=== PATIENT | male | born 1950 | race Caucasian/White ===

== ENCOUNTER 2018-02-21 22:44 | Observation (INO) | payer MEDICARE ==
[2018-02-21 22:59] VITALS: BP 213/96; PULSE 51; RESP 20; O2SAT 98
--- NOTE | 2018-02-21 23:02 | PD ---
HPI Chief Complaint: Chest Pain Time Seen by Provider: 22:46 Travel History International Travel<30 days: No Contact w/Intl Traveler<30days: No Traveled to known affect area: No History of Present Illness HPI 68-year-old male complains of chest pain. Patient states that he started having substernal chest pressure about an hour prior to arrival. Patient states that the chest pressure lasted a few minutes and resolved completely. Patient denies any chest pain now. Patient states that he had nausea and palpitation with a chest pain. Patient denies any diaphoresis. Patient denies any chest pain radiation. Patient has history of CAD status post stent placement in the past. Patient has history hypertension, diabetes, hyperlipidemia. Patient is a non-smoker. Patient has family history of heart disease. Patient on aspirin 81 mg twice a day. FOR[facility]LY [facility] Social History Tobacco Use: No Allergies-Medications (Allergen,Severity, Reaction): Coded Allergies: No Known Allergies (Unverified , 02/21/18) Reported Meds & Prescriptions Reported Meds & Active Scripts Active Reported Nexium (Esomeprazole DR) 40 Mg Capdr 40 Mg PO DAILY Tamsulosin (Tamsulosin HCl) 0.4 Mg Cap 0.4 Mg HS Levothyroxine (Levothyroxine Sodium) 50 Mcg Tab 50 Mcg PO DAILY Atorvastatin (Atorvastatin Calcium) 20 Mg Tab 20 Mg PO HS Lisinopril 5 Mg Tab 5 Mg PO DAILY Aspirin 81 (Aspirin) 81 Mg Tabdr 81 Mg PO DAILY Metoprolol Tartrate 25 Mg Tab 12.5 Mg PO BID Metformin (Metformin HCl) 850 Mg Tab 850 Mg PO BIDPC Review of Systems General / Constitutional: No: Fever Eyes: No: Visual changes HENT: No: Headaches Cardiovascular: Positive: Chest Pain or Discomfort Respiratory: No: Shortness of Breath Gastrointestinal: Positive: Nausea, No: Abdominal Pain Genitourinary: No: Dysuria Musculoskeletal: No: Pain Skin: No Rash Neurologic: No: Weakness Psychiatric: No: Depression Endocrine: No: Polydipsia Hematologic/Lymphatic: No: Easy Bruising Physical Exam Narrative GENERAL: Well-nourished, well-developed patient. SKIN: Focused skin assessment warm/dry. HEAD: Normocephalic. EYES: No scleral icterus. No injection or drainage. NECK: Supple, trachea midline. No JVD or lymphadenopathy. CARDIOVASCULAR: Regular rate and rhythm without murmurs, gallops, or rubs. RESPIRATORY: Breath sounds equal bilaterally. No accessory muscle use. GASTROINTESTINAL: Abdomen soft, non-tender, nondistended. MUSCULOSKELETAL: No cyanosis, or edema. BACK: Nontender without obvious deformity. No CVA tenderness. Neurologic exam normal. Data Data Last Documented VS Vital Signs Date Time Temp Pulse Resp B/P (MAP) Pulse Ox O2 Delivery O2 Flow Rate FiO2 02/21/18 23:06 58 20 02/21/18 22:59 213/96 (135) 98 Orders Orders Electrocardiogram (02/21/18 22:55) Complete Blood Count With Diff (02/21/18 22:55) Comprehensive Metabolic Panel (02/21/18 22:55) Creatine Kinase (Cpk) (02/21/18 22:55) Troponin I (02/21/18 22:55) Prothrombin Time / Inr (Pt) (02/21/18 22:55) Act Partial Throm Time (Ptt) (02/21/18 22:55) Lipase (02/21/18 22:55) Chest, Single Ap (02/21/18 22:55) Iv Access Insert/Monitor (02/21/18 22:55) Ecg Monitoring (02/21/18 22:55) Oximetry (02/21/18 22:55) Admit Order (Ed Use Only) (02/22/18 00:17) Activity Bed Rest With Brp (02/22/18 00:18) Vital Signs (Adult) Q4H (02/22/18 00:18) Cardiac Rhythm .As Directed (02/22/18 00:18) Notify Dr: Other .PRN (02/22/18 00:18) Notify Parameters (02/22/18 00:18) Resp Oxygen Nasal Cannula (02/22/18 ) Diet Npo (02/22/18 Breakfast) Ckmb (Isoenzyme) Profile (02/22/18 01:50) Ckmb (Isoenzyme) Profile (02/22/18 04:50) Troponin I (02/22/18 01:50) Troponin I (02/22/18 04:50) Electrocardiogram (02/22/18 01:50) Electrocardiogram (02/22/18 04:50) ^ Obtain (02/22/18 00:18) Sodium Chloride 0.9% Flush (Ns Flush) (02/22/18 00:30) Sodium Chloride 0.9% Flush (Ns Flush) (02/22/18 09:00) Acetaminophen (Tylenol) (02/22/18 00:30) Ondansetron Inj (Zofran Inj) (02/22/18 00:30) Nutrition Coordinator / Telemetry KODAK.Q8H (02/22/18 00:18) Labs Laboratory Tests Test 02/21/18 22:50 White Blood Count 7.5 TH/MM3 Red Blood Count 4.34 MIL/MM3 Hemoglobin 13.6 GM/DL Hematocrit 40.9 % Mean Corpuscular Volume 94.1 FL Mean Corpuscular Hemoglobin 31.4 PG Mean Corpuscular Hemoglobin Concent 33.4 % Red Cell Distribution Width 12.5 % Platelet Count 177 TH/MM3 Mean Platelet Volume 9.5 FL Neutrophils (%) (Auto) 53.2 % Lymphocytes (%) (Auto) 30.6 % Monocytes (%) (Auto) 9.8 % Eosinophils (%) (Auto) 5.7 % Basophils (%) (Auto) 0.7 % Neutrophils # (Auto) 4.0 TH/MM3 Lymphocytes # (Auto) 2.3 TH/MM3 Monocytes # (Auto) 0.7 TH/MM3 Eosinophils # (Auto) 0.4 TH/MM3 Basophils # (Auto) 0.1 TH/MM3 CBC Comment DIFF FINAL Differential Comment Prothrombin Time 10.7 SEC Prothromb Time International Ratio 1.1 RATIO Activated Partial Thromboplast Time 26.1 SEC Blood Urea Nitrogen 22 MG/DL Creatinine 1.20 MG/DL Random Glucose 140 MG/DL Total Protein 7.2 GM/DL Albumin 3.8 GM/DL Calcium Level 8.8 MG/DL Alkaline Phosphatase 61 U/L Aspartate Amino Transf (AST/SGOT) 14 U/L Alanine Aminotransferase (ALT/SGPT) 23 U/L Total Bilirubin 0.4 MG/DL Sodium Level 139 MEQ/L Potassium Level 3.7 MEQ/L Chloride Level 105 MEQ/L Carbon Dioxide Level 26.1 MEQ/L Anion Gap 8 MEQ/L Estimat Glomerular Filtration Rate 60 ML/MIN Total Creatine Kinase 84 U/L Troponin I LESS THAN 0.02 NG/ML Lipase 179 U/L MDM Medical Decision Making Medical Screen Exam Complete: Yes Emergency Medical Condition: Yes Interpretation(s) EKG shows sinus rhythm nonspecific ST-T wave change. 23:58 PM. Last Impressions Chest X-Ray 02/21/18 [id number] Signed Impressions: Service Date/Time: Wednesday, February 21, 2018 23:06 - CONCLUSION: No acute disease. Chris Vu MD 23:58 PM. CBC within normal limits. Differential Diagnosis Differential diagnosis including musculoskeletal, angina, VT, PE, pneumothorax. Narrative Course 68-year-old male with chest pain. History of CAD status post stent placement. Patient will be admitted to the chest pain center. Aspirin 162 mg p.o. given. Diagnosis Primary Impression: Chest pain Qualified Codes: R07.9 - Chest pain, unspecified Admitting Information Admitting Physician Requests: Observation Heath Johnson MD February 21, 2018 23:02
[2018-02-21 23:14] LABS: BASOPHIL # 0.1 TH/MM3 (0-0.2); BASOPHIL % 0.7 % (0.0-2.0); EOSINOPHIL # 0.4 TH/MM3 (0-0.4); EOSINOPHIL % 5.7 % (0.0-4.0); HEMATOCRIT 40.9 % (39.0-51.0); HEMOGLOBIN 13.6 GM/DL (13.0-17.0); LYMPH % 30.6 % (9.0-44.0); LYMPHOCYTE # 2.3 TH/MM3 (1.0-4.8); MEAN CELL VOLUME 94.1 FL (80.0-100.0); MEAN CORPUSCULAR HEMOGLOBIN 31.4 PG (27.0-34.0); MEAN CORPUSCULAR HGB CONC 33.4 % (32.0-36.0); MEAN PLATELET VOLUME 9.5 FL (7.0-11.0); MONO % 9.8 % (0.0-8.0); MONOCYTE # 0.7 TH/MM3 (0-0.9); NEUT % 53.2 % (16.0-70.0); PLATELET COUNT 177 TH/MM3 (150-450); RED BLOOD COUNT 4.34 MIL/MM3 (4.50-5.90); RED CELL DISTRIBUTION WIDTH 12.5 % (11.6-17.2); WHITE BLOOD COUNT 7.5 TH/MM3 (4.0-11.0)
[2018-02-21] MEDS ORDERED: TAMS0.4C4 (23:20)
[2018-02-21] MEDS ORDERED: ATOR20TA15 PO (23:20)
[2018-02-21] MEDS ORDERED: METF850T PO (23:20)
[2018-02-21] MEDS ORDERED: LEVO50TA4 PO (23:20)
[2018-02-21] MEDS ORDERED: LISI-519 PO (23:20)
[2018-02-21] MEDS ORDERED: ASPI1TAB57 PO (23:20)
[2018-02-21] MEDS ORDERED: METO25TA3 PO (23:20)
[2018-02-21] MEDS ORDERED: NEXI40CA PO (23:21)
[2018-02-21 23:22] LABS: CHLORIDE 105 MEQ/L (98-107); SODIUM (NA) 139 MEQ/L (136-145)
[2018-02-21 23:26] LABS: ALBUMIN 3.8 GM/DL (3.4-5.0); BICARBONATE 26.1 MEQ/L (21.0-32.0); CALCIUM 8.8 MG/DL (8.5-10.1); GLUCOSE,RANDOM 140 MG/DL (74-106)
[2018-02-21 23:27] LABS: BLOOD UREA NITROGEN 22 MG/DL (7-18)
[2018-02-21 23:29] LABS: ALT (GPT) 23 U/L (12-78); AST (GOT) 14 U/L (15-37); GLOMERULAR FILTRATION RATE 60 ML/MIN (>89); INTERNATIONAL NORMALIZED RATIO 1.1 RATIO; PROTHROMBIN TIME - PATIENT 10.7 SEC (9.8-11.6)
[2018-02-21 23:30] VITALS: BP 168/77; PULSE 58; RESP 20; O2SAT 98
[2018-02-21 23:31] LABS: TOTAL BILIRUBIN ADULT 0.4 MG/DL (0.2-1.0); TOTAL PROTEIN 7.2 GM/DL (6.4-8.2)
[2018-02-21 23:32] LABS: ALKALINE PHOSPHATASE 61 U/L (45-117)
[2018-02-21 23:34] LABS: TROPONIN I LESS THAN 0.02 NG/ML (0.02-0.05)
--- NOTE | 2018-02-21 23:41 | RADRPT ---
EXAM DATE/TIME: 02/21/2018 23:06 [place] COMPARISON: No previous studies available for comparison. INDICATIONS : Substernal chest tightness. MEDICAL HISTORY : Hypertension. Coronary artery disease. SURGICAL HISTORY : Coronary artery stent. ENCOUNTER: Initial ACUITY: 1 day PAIN SCORE: 4/10 LOCATION: chest substernal FINDINGS: A single view of the chest demonstrates the lungs to be symmetrically aerated without evidence of mas s, infiltrate or effusion. The cardiomediastinal contours are unremarkable. Osseous structures are intact. CONCLUSION: No acute disease. Chris Vu MD on February 21, 2018 at 23:39 Board Certified Radiologist. This report was verified electronically.
[2018-02-22] VITALS (9 sets, daily range): BP systolic 135–154; BP diastolic 66–85; PULSE 54–66; RESP 18–20; TEMP 97–97.2; O2SAT 95–99
[2018-02-22] MEDS ORDERED: ACETAMINOPHEN 500 MG CPLT PO PRN (00:30)
[2018-02-22] MEDS ORDERED: SODIUM CHLORIDE 0.9% FLUSH 10 ML FLUSH IV FLUSH PRN (00:30)
[2018-02-22] MEDS ORDERED: ONDANSETRON HCL 4 MG/2 ML VIAL IV PUSH PRN (00:30)
[2018-02-22 02:51] LABS: TROPONIN I LESS THAN 0.02 NG/ML (0.02-0.05)
[2018-02-22 06:59] LABS: TROPONIN I LESS THAN 0.02 NG/ML (0.02-0.05)
--- NOTE | 2018-02-22 07:41 | HHI.HP ---
[facility] Service [facility] Primary Care Physician Saeid German MD Admission Diagnosis Chest pain Diagnoses: Chief Complaint: Chest pain Travel History International Travel<30 Days: No Contact w/Intl Traveler <30 Da: No Traveled to Known Affected Are: No History of Present Illness This is a pleasant 68-year-old male patient with a known medical history of CAD with previous cardiac stent placement, hypertension and diabetes who presented to the ED with complaints of chest pressure. Patient states that while walking the dog yesterday afternoon he developed a chest pressure in his midsternal chest, lasted roughly 5-6 minutes and resolved at rest. Patient states that he did have associated diaphoresis, shakiness and shortness of breath with mild nausea. Patient states that at rest the chest pressure completely resolved although last evening before going to bed he developed similar chest pressure with associated nausea and palpitations. He states he had mild shortness of breath, states he could not catch his breath with mild diaphoresis and decided to come to the ED. At the present time of assessment patient's chest pressure has resolved overnight, denies any acute events overnight. Denies any recent fevers, chills, cough, shortness of breath, nausea, vomiting, diarrhea or dysuria. Patient denies any current tobacco abuse. Does have a history of hypertension, diabetes and hyperlipidemia. Does take aspirin twice a day. Follows with Dr. Hall, cardiology. States his last stress test was this year which was reportedly negative. Patient did undergo react stent placement in 2011 in [place] and since then has been on aspirin. Patient last saw his PCP in November. Was placed on levothyroxine for hypothyroidism. Chest x-ray negative upon presentation. Cardiac enzymes negative. It should be noted that patient's blood pressure was significantly elevated upon presentation with systolic in the 200s. Patient did admit to taking his medicines yesterday afternoon. Review of Systems Constitutional: COMPLAINS OF: Diaphoretic episodes, DENIES: Fever, Chills Eyes: DENIES: Diplopia Respiratory: COMPLAINS OF: Shortness of breath, DENIES: Cough, Sputum production Cardiovascular: COMPLAINS OF: Chest pain, Palpitations Gastrointestinal: COMPLAINS OF: Nausea, DENIES: Abdominal pain, Black stools, Bloody stools, Constipation, Diarrhea, Vomiting Musculoskeletal: DENIES: Joint pain Hematologic/lymphatic: DENIES: Bruising Psychiatric: COMPLAINS OF: Anxiety Except as stated in HPI: all other systems reviewed are Neg Past Family Social History Past Medical History Diabetes Hypertension Hyperlipidemia Hypothyroidism Hypercholesterolemia CAD with previous cardiac stent placement Past Surgical History Cardiac stent placement 2012 Bilateral cataracts 2018 Skin cancer removal on back 10 years ago Reported Medications Active Reported Nexium (Esomeprazole DR) 40 Mg Capdr 40 Mg PO DAILY Tamsulosin (Tamsulosin HCl) 0.4 Mg Cap 0.4 Mg HS Levothyroxine (Levothyroxine Sodium) 50 Mcg Tab 50 Mcg PO DAILY Atorvastatin (Atorvastatin Calcium) 20 Mg Tab 20 Mg PO HS Lisinopril 5 Mg Tab 5 Mg PO DAILY Aspirin 81 (Aspirin) 81 Mg Tabdr 81 Mg PO DAILY Metoprolol Tartrate 25 Mg Tab 12.5 Mg PO BID Metformin (Metformin HCl) 850 Mg Tab 850 Mg PO BIDPC Allergies: Coded Allergies: No Known Allergies (Unverified , 02/21/18) Active Ordered Medications Current Medications Medications (Trade) Dose Ordered Sig/Janet Route Start Time Stop Time Status Last Admin (NS Flush) 2 ml UNSCH PRN IV FLUSH 02/22/18 00:30 (NS Flush) 2 ml BID IV FLUSH 02/22/18 09:00 (Tylenol) 500 mg Q4H PRN PO 02/22/18 00:30 (Zofran Inj) 4 mg Q6H PRN IV PUSH 02/22/18 00:30 (Pneumovax-23 Inj) 25 mcg ONCE ONCE IM 02/23/18 10:00 02/23/18 10:01 (Nitrostat Sl) 0.4 mg Q5M PRN SL 02/22/18 07:45 UNV Family History Paternal medical history significant for CHF, at the age of 6262 years old. Unaware if he had an MS. Mother of old age. Social History Patient denies any current tobacco abuse, alcohol or illicit drug use. Physical Exam Vital Signs Vital Signs Date Time Temp Pulse Resp B/P (MAP) Pulse Ox O2 Delivery O2 Flow Rate FiO2 02/22/18 04:04 97.1 56 18 135/74 (94) 99 02/22/18 01:50 98 Nasal Cannula 2.00 02/22/18 01:26 97.2 57 20 152/85 (107) 98 02/22/18 01:23 57 02/22/18 01:20 58 20 143/66 (91) 98 02/22/18 00:15 56 20 150/80 (103) 98 02/21/18 23:30 58 20 168/77 (107) 98 02/21/18 23:06 58 20 02/21/18 22:59 51 20 213/96 (135) 98 Physical Exam GENERAL: Well-developed, well-nourished patient in NAD. SKIN: Warm and dry. No rash. HEAD: Normocephalic. Atraumatic. EYES: Pupils equal and round. No scleral icterus. No injection or drainage. ENT: No nasal bleeding or discharge. Mucous membranes pink and moist. NECK: Supple. Trachea midline. CARDIOVASCULAR: Regular rate and rhythm. S1, S2 noted. No murmur appreciated. No chest pain to palpation RESPIRATORY: No accessory muscle use. Clear to auscultation. Breath sounds equal bilaterally. GASTROINTESTINAL: Abdomen soft, non-tender, nondistended. Normoactive bowel sounds x4. MUSCULOSKELETAL: No obvious deformities. Extremities without clubbing, cyanosis , or edema. NEUROLOGICAL: Awake and alert. No obvious cranial nerve deficits. Motor grossly within normal limits. 5/5 muscle strength in bilateral upper and lower extremities. Normal speech. PSYCHIATRIC: Appropriate mood and affect; insight and judgment normal. Laboratory Laboratory Tests Test 02/21/18 22:50 02/22/18 01:51 02/22/18 05:05 White Blood Count 7.5 Red Blood Count 4.34 Hemoglobin 13.6 Hematocrit 40.9 Mean Corpuscular Volume 94.1 Mean Corpuscular Hemoglobin 31.4 Mean Corpuscular Hemoglobin Concent 33.4 Red Cell Distribution Width 12.5 Platelet Count 177 Mean Platelet Volume 9.5 Neutrophils (%) (Auto) 53.2 Lymphocytes (%) (Auto) 30.6 Monocytes (%) (Auto) 9.8 Eosinophils (%) (Auto) 5.7 Basophils (%) (Auto) 0.7 Neutrophils # (Auto) 4.0 Lymphocytes # (Auto) 2.3 Monocytes # (Auto) 0.7 Eosinophils # (Auto) 0.4 Basophils # (Auto) 0.1 CBC Comment DIFF FINAL Differential Comment Prothrombin Time 10.7 Prothromb Time International Ratio 1.1 Activated Partial Thromboplast Time 26.1 Blood Urea Nitrogen 22 Creatinine 1.20 Random Glucose 140 Total Protein 7.2 Albumin 3.8 Calcium Level 8.8 Alkaline Phosphatase 61 Aspartate Amino Transf (AST/SGOT) 14 Alanine Aminotransferase (ALT/SGPT) 23 Total Bilirubin 0.4 Sodium Level 139 Potassium Level 3.7 Chloride Level 105 Carbon Dioxide Level 26.1 Anion Gap 8 Estimat Glomerular Filtration Rate 60 Total Creatine Kinase 84 54 64 Troponin I LESS THAN 0.02 LESS THAN 0.02 LESS THAN 0.02 Lipase 179 Result Diagram: 02/21/18224902/21/182249 Imaging Last Impressions Chest X-Ray 02/21/182254 Signed Impressions: Service Date/Time: Wednesday, February 21, 2018 23:06 - CONCLUSION: No acute disease. Chris Vu MD Septic Shock Reassessment Septic shock perfusion: reassessment completed Caprini VTE Risk Assessment Caprini VTE Risk Assessment: Mod/High Risk (score >= 2) Caprini Risk Assessment Model Point Value = 1 Point Value = 2 Point Value = 3 Point Value = 5 Age 41-60 Minor surgery BMI > 25 kg/m2 Swollen legs Varicose veins or History of unexplained or recurrent spontaneous Oral contraceptives or hormone replacement Sepsis (< 1 month) Serious lung disease, including pneumonia (< 1 month) Abnormal pulmonary function Acute myocardial infarction Congestive heart failure (< 1 month) History of inflammatory bowel disease Medical patient at bed rest Age 61-74 Arthroscopic surgery Major open surgery (> 45 min) Laparoscopic surgery (> 45 min) Malignancy Confined to bed (> 72 hours) Immobilizing plaster cast Central venous access Age >= 75 History of VTE Family history of VTE Factor V Leiden Prothrombin 51420L Lupus anticoagulant Anticardiolipin antibodies Elevated serum homocysteine Heparin-induced thrombocytopenia Other congenital or acquired thrombophilia Stroke (< 1 month) Elective arthroplasty Hip, pelvis, or leg fracture Acute spinal cord injury (< 1 month) Prophylaxis Regimen Total Risk Factor Score Risk Level Prophylaxis Regimen 0-1 Low Early ambulation 2 Moderate Order ONE of the following: *Sequential Compression Device (SCD) *Heparin 5000 units SQ BID 3-4 Higher Order ONE of the following medications: *Heparin 5000 units SQ TID *Enoxaparin/Lovenox 40 mg SQ daily (WT < 150 kg, CrCl > 30 mL/min) *Enoxaparin/Lovenox 30 mg SQ daily (WT < 150 kg, CrCl > 10-29 mL/min) *Enoxaparin/Lovenox 30 mg SQ BID (WT < 150 kg, CrCl > 30 mL/min) AND/OR *Sequential Compression Device (SCD) 5 or more Highest Order ONE of the following medications: *Heparin 5000 units SQ TID (Preferred with Epidurals) *Enoxaparin/Lovenox 40 mg SQ daily (WT < 150 kg, CrCl > 30 mL/min) *Enoxaparin/Lovenox 30 mg SQ daily (WT < 150 kg, CrCl > 10-29 mL/min) *Enoxaparin/Lovenox 30 mg SQ BID (WT < 150 kg, CrCl > 30 mL/min) AND *Sequential Compression Device (SCD) Assessment and Plan Problem List: (1) Chest pain ICD Code: R07.9 - Chest pain, unspecified Status: Acute Plan: Patient has been admitted to the chest pain center for observation. Serial EKGs and serial troponins have been ordered for ruling out ACS purposes. Cardiac troponins flat. EKG reviewed. Cardiac telemetry continued overnight, no reports of any arrhythmias. Patient with significantly elevated blood pressure upon presentation, systolic in the 200s. Has now resolved. And within normal limits. Chest pain has resolved. Patient last underwent a stress test this year, follows with Dr. Hall. Contacted this morning, aware of patient's arrival, will discharge and have him follow-up in the office. Patient's home medications will be resumed including beta-shala, statin and ROCHELLE inhibitor. Patient to follow-up with PCP as well for management of diabetes and hypothyroidism. (2) Hypertension ICD Code: I10 - Essential (primary) hypertension Plan: Systolic in the 200s upon presentation. This is now resolved. Will continue on home medications. Management per PCP and jailer chief outpatient. (3) Diabetes ICD Code: E11.9 - Type 2 diabetes mellitus without complications Plan: Patient states well controlled on home medicine regimen. We will continue metformin. Follow PCP. (4) Hyperlipidemia ICD Code: E78.5 - Hyperlipidemia, unspecified Plan: Continue home statin. (5) Hypothyroidism ICD Code: E03.9 - Hypothyroidism, unspecified Plan: PCP to follow. Will continue home levothyroxine. Problem Qualifiers (1) Chest pain: Qualified Codes: R07.9 - Chest pain, unspecified Lisa Harley February 22, 2018 07:41
[2018-02-22] MEDS ORDERED: NITROGLYCERIN 0.4 MG SL 25 TABS/BTL SL PRN (07:45)
--- NOTE | 2018-02-22 08:03 | HHI.DCPOC ---
Discharge Care Plan Diagnosis: (1) Chest pain (2) Diabetes (3) Hyperlipidemia (4) Hypothyroidism (5) Hypertension Goals to Promote Your Health * To prevent worsening of your condition and complications * To maintain your health at the optimal level Directions to Meet Your Goals Take your medications as prescribed Follow your dietary instruction Follow activity as directed Keep your appointments as scheduled Take your immunizations and boosters as scheduled If your symptoms worsen call your PCP, if no PCP go to Urgent Care Center or Emergency Room Smoking is Dangerous to Your Health. Avoid second hand smoke Call the 24-hour hour crisis hotline for domestic abuse at Lisa Harley February 22, 2018 08:03
[2018-02-22] MEDS ORDERED: ASPIRIN EC 81 MG TABEC PO SCH (09:00)
[2018-02-22] MEDS ORDERED: PANTOPRAZOLE SOD 40 MG DELAYED RELEASE TAB PO SCH (09:00)
[2018-02-22] MEDS ORDERED: LISINOPRIL 5 MG TAB PO SCH (09:00)
[2018-02-22] MEDS ORDERED: LEVOTHYROXINE SODIUM 50 MCG TAB PO SCH (09:00)
[2018-02-22] MEDS ORDERED: SODIUM CHLORIDE 0.9% FLUSH 10 ML FLUSH IV FLUSH SCH (09:00)
[2018-02-22] MEDS ORDERED: METOPROLOL TARTRATE 25 MG TAB PO SCH (09:00)
--- NOTE | 2018-02-22 18:17 | EKG ---
Date Performed: 02/21/2018 Time Performed: 22:49:05 PTAGE: 68 years EKG: Sinus rhythm NORMAL ECG INTERPRETATION BASED ON A DEFAULT AGE OF 40 YEARS NO PREVIOUS TRACING DOCTOR: Brianna Tinajero Interpretating Date/Time 02/22/2018 18:16:20
--- NOTE | 2018-02-22 18:17 | EKG ---
Date Performed: 02/22/2018 Time Performed: 01:54:37 PTAGE: 68 years EKG: SINUS BRADYCARDIA BORDERLINE ECG PREVIOUS TRACING : 02/21/2018 22.49 Since the previous tracing, no significant change noted DOCTOR: Brianna Tinajero Interpretating Date/Time 02/22/2018 18:16:46
--- NOTE | 2018-02-22 18:17 | EKG ---
Date Performed: 02/22/2018 Time Performed: 05:04:58 PTAGE: 68 years EKG: SINUS BRADYCARDIA MODERATE INTRAVENTRICULAR CONDUCTION DELAY BORDERLINE ECG PREVIOUS TRACING : 02/22/2018 01.54 Since the previous tracing, no significant change noted DOCTOR: Brianna Tinajero Interpretating Date/Time 02/22/2018 18:17:06
[2018-02-22] MEDS ORDERED: TAMSULOSIN HCL 0.4 MG CAP PO SCH (21:00)
[2018-02-22] MEDS ORDERED: ATORVASTATIN 20 MG TAB PO SCH (21:00)
[2018-02-23] MEDS ORDERED: PNEUMOCOCCAL POLYVALENT INJ 25 MCG/0.5 ML SYR IM ONE (10:00)
== END 2018-02-22 11:24 | disposition home or self-care (01) ==
LOC: PHED 22:44 → PHEDA 02-22 00:19 → PH3A 02-22 01:09
PROVIDERS: ADMIT Hospitalist; ATTEND Hospitalist
DX: R07.89 Other chest pain (principal); I25.10 Atherosclerotic heart disease of native coronary artery without angina pectoris; I10 Essential (primary) hypertension; E11.9 Type 2 diabetes mellitus without complications; E78.5 Hyperlipidemia, unspecified; E03.9 Hypothyroidism, unspecified; R06.02 Shortness of breath; R11.0 Nausea; R61 Generalized hyperhidrosis; R00.1 Bradycardia, unspecified; Z79.82 Long term (current) use of aspirin; Z85.828 Personal history of other malignant neoplasm of skin; Z79.899 Other long term (current) drug therapy; Z79.84 Long term (current) use of oral hypoglycemic drugs; Z95.5 Presence of coronary angioplasty implant and graft
CPT/HCPCS: 71045; 80053; 82550; 83690; 84484; 85025; 85610; 85730; 93005; 99285; G0378